=== PATIENT | female | born 1945 | race Caucasian/White ===

== ENCOUNTER 2016-10-22 07:12 | Day surgery (SDC) | payer MEDICARE, OTHER ==
--- NOTE | 2016-10-10 14:20 | CONS ---
DATE OF ADMISSION: 11/15/2015 DATE OF CONSULTATION: TYPE OF CONSULTATION: Preoperative gastroenterology Dear Dr. Adam Michael: I thank you very much for this kind referral. HISTORY OF PRESENT ILLNESS: Ms. Asya Wells is a 71-year-old female patient who has been refer red to me for further evaluation of upper abdominal pain associated with nausea and vomiting. There is no past history of peptic ulcer disease. She has been taking ibuprofen. There is no history of gallstones. She does not have any fever, chills or jaundice. There is no history of liver disease . The patient is on chemotherapy for breast cancer with metastasis. The patient has history of con stipation, and she underwent colonoscopy 1 year ago and she was noted to have diverticulosis of the colon as well as colon polyps. There was no colon malignancy identified. She is hypertensive. She is not a diabetic. She does not have any heart disease or lung problem. There is no history of ki dney disease. She has hyperlipidemia. SOCIAL HISTORY: She is a nonsmoker. She does not abuse alcohol. FAMILY HISTORY: Negative for gastrointestinal tract neoplasm. ALLERGIES: THERE IS NO HISTORY OF SIGNIFICANT DRUG ALLERGY. MEDICATIONS: She takes medicines for high blood pressure and cholesterol. She does not remember th e names. Oxycodone, ibuprofen. PHYSICAL EXAMINATION: VITAL SIGNS: She is 5 feet 9 inches tall and weighs 210 pounds. Her BMI is 31. Her blood pressure is 134/86. HEART: Examination of the heart reveals normal first and second heart sounds. LUNGS: Clear. ABDOMEN: Soft without any distention. Liver and spleen are not palpable. There are no masses. Th ere is no focal tenderness. Normal bowel sounds are heard. CENTRAL NERVOUS SYSTEM: Does not reveal any focal neurological deficit. IMPRESSION: 1. Upper abdominal pain associated with nausea and vomiting. 2. The patient has been taking ibuprofen. 3. She is on chemotherapy for metastatic breast cancer. 4. History of colon polyps. 5. Diverticulosis of the colon. 6. Hypertension. 7. Hyperlipidemia. PLAN: 1. Endoscopic examination for further evaluation. 2. Because of the obesity with a short thick neck, the patient needs monitored anesthesia care for the procedure. The procedure and possible complications are well explained to the patient. She understands and con sents to the procedure. The patient will be followed by the primary MD for the management of hypertension and elevated BMI. Weight loss was recommended. Dietary consultation was recommended. I thank you once again. With warmest personal regards, Dictated By: TOÑA TENORIO MD GD/NTS Conf#: [id number] DID#: [id number] CC: TOÑA TENORIO MD;*EndCC*
[~2016-10-22] VITALS: Ht 175.3 cm; Wt 84.0 kg
[~2016-10-22 07:12] MED LIST: BLOOD PRESSURE MED; CHOLESTEROL MED; IBUPROFEN; OXYCODONE
[2016-10-22 08:02] VITALS: Ht 175.3 cm; Wt 84.0 kg
[2016-10-22] MEDS ORDERED: ASPI81TA3 PO (08:09)
[2016-10-22] MEDS ORDERED: CHEMOTHERAPY (08:25)
[2016-10-22] MEDS ORDERED: PROPOFOL 20 ML ONE (08:42)
[2016-10-22] MEDS ORDERED: LIDOCAINE 2% (SDV) 5 ML INJ ONE (08:42)
[2016-10-22] MEDS ORDERED: MIDAZOLAM 1 MG/ML 2 ML INJ ONE (08:42)
[2016-10-22 08:43] VITALS: BP 144/73; PULSE 88; RESP 16
[2016-10-22 09:39] VITALS: BP 137/76; RESP 20
--- NOTE | 2016-10-22 13:45 | GILP ---
DATE OF PROCEDURE: 10/22/2016 NAME OF PROCEDURES: Esophagogastroduodenoscopy and biopsy. SURGEON: Toña Murrell MD PREOPERATIVE DIAGNOSES: 1. Abdominal pain. 2. Nausea and vomiting. POSTOPERATIVE DIAGNOSES: 1. Hiatal hernia. 2. Gastroesophageal reflux disease. 3. Gastritis with erosions. 4. Gastric mucosal biopsies were taken for Helicobacter pylori test. INDICATION FOR THE PROCEDURE: Ms. Asya Wells is a 71-year-old female patient who had upper ab dominal pain, nausea and vomiting, not responding to therapy. The patient was scheduled for endosco pic examination for further evaluation. The procedure and possible complications were well explained to the patient. She understood and con sented to the procedure. DESCRIPTION OF PROCEDURE: Under the influence of anesthesia, the gastroscope was carefully introduc ed into the esophagus and under direct vision it was advanced to the stomach and through the pylorus into the duodenal bulb and descending duodenum. FINDINGS: ESOPHAGUS: The patient had a hiatal hernia and gastroesophageal reflux disease. STOMACH: She had gastritis with erosions. Gastric mucosal biopsies were taken for H. pylori test. DUODENUM: Normal. She tolerated the procedure very well and there was no complication from the procedure. At the end of the procedure, she was awake with stable vital signs and she was discharged home to the care of h er family. IMPRESSION: 1. Hiatal hernia. 2. Gastroesophageal reflux disease. 3. Gastritis with erosions. 4. Gastric mucosal biopsies were taken for Helicobacter pylori test. PLAN: 1. Omeprazole 40 mg p.o. q.a.m. 2. Await H. pylori test report. Dictated By: TOÑA HANSEN/NTS Conf#: [id number] DID#: [id number] CC: JAIME HERNANDEZ MD;*EndCC*
== END 2016-10-22 11:42 | disposition home or self-care (01) ==
LOC: GIL 07:12
PROVIDERS: ATTEND Internal Medicine Gastroenterology
DX: K29.60 Other gastritis without bleeding (principal); K44.9 Diaphragmatic hernia without obstruction or gangrene; K21.9 Gastro-esophageal reflux disease without esophagitis; B96.81 Helicobacter pylori [H. pylori] as the cause of diseases classified elsewhere; I10 Essential (primary) hypertension; E78.5 Hyperlipidemia, unspecified; E66.9 Obesity, unspecified; Z68.27 Body mass index [BMI] 27.0-27.9, adult
CPT/HCPCS: 43239; 87081; J2250